=== PATIENT | male | born 1990 | race Caucasian/White ===

== ENCOUNTER 2017-05-13 05:29 | Day surgery (SDC) | payer MEDICAID ==
[~2017-05-13 05:29] MED LIST: Dextrose 5%-0.45% NaCl 1,000 ML IV SCH; Sodium Chloride 0.9% 10 ML Syringe FLUSH PRN
[2017-05-13] MEDS ORDERED: Midazolam 1 MG/ML 2 ML SDV ONE (06:12)
[2017-05-13] MEDS ORDERED: fentaNYL 100 MCG/2 ML SDV ONE (06:12)
[2017-05-13] MEDS ORDERED: fentaNYL 100 MCG/2 ML SDV IV ONE ×3 (06:32→16:15)
[2017-05-13] MEDS ORDERED: Midazolam 1 MG/ML 2 ML SDV IV ONE ×3 (06:34→16:15)
[2017-05-13 08:12] VITALS: BP 119/83
--- NOTE | 2017-05-13 08:28 | OR ---
DATE: 05/13/2017 PROCEDURE: Esophagogastroduodenoscopy and multiple pinch biopsies. INSTRUMENT USED: GIF-H180 Olympus video panendoscope. PREMEDICATIONS: No oral topical anesthesia used. Fentanyl 100 mcg intravenous, Versed 2 mg intravenous. The procedure was done under pulse oximetry, BP recording, and nuclear control operator. INDICATION: The patient with long-standing heartburn, regurgitation, and intermittent hematemesis, unexplained, and not responsive to medical measures, on longstanding acid suppressants. Esophagogastroduodenoscopy is performed for detection of any active erosive lesions, Patel's esophagus and/or malignancy also under consideration, H. pylori status to be determined, endoscopic hemostasis therapy if needed. DESCRIPTION OF PROCEDURE: The scope was passed with ease. Adequate visualization of the esophagus was made from proximal to distal areas. No upper esophageal lesions identified. No distal esophageal stricture. No uphill or downhill esophageal varices. No Elissa-Leon tear. Grade A erosive changes were noted by [place] criteria. No esophageal polyp or tumor mass identified. Z-line was seen at around 40 cm distal to the oral verge, configuration consistent with grade 1 by ZAP classification. No proximal gastric varices noted. Gastric fundus examination by retroflexion showed no polypoid lesions. No gastric ulcer, malignant mass, or vascular ectasia identified. The examination was a bit limited due to the presence of some solid food material that could not be aspirated clear. Duodenal bulb showed no ulcer. Visualized second part of the duodenum was unremarkable. Multiple pinch biopsies were taken from the gastric, antrum, and proximal body and sent for PyloriTek test for H. pylori, and if negative in an hour, the tissue is to be sent for histopathology. No bleeding was noted from any of the visualized areas at the completion of examination. Photographs were taken of the duodenal bulb, gastric antrum, fundus, and distal esophagus. IMPRESSION: Grade A gastroesophageal reflux disease. The patient tolerated the procedure well. [facility] /[id number]
== END 2017-05-13 08:40 | disposition home or self-care (01) ==
LOC: DL.ENDO 05:29
PROVIDERS: ATTEND Internal Medicine Gastroenterology
DX: A04.8 Other specified bacterial intestinal infections (principal); K21.9 Gastro-esophageal reflux disease without esophagitis; E66.09 Other obesity due to excess calories; Z91.030 Bee allergy status; M51.36 Other intervertebral disc degeneration, lumbar region
CPT/HCPCS: 43239; J2250; J3010; J7042

== ENCOUNTER 2017-12-21 21:49 | Emergency (ER) | payer MEDICAID ==
[2017-12-21 22:03] VITALS: BP 132/89
[2017-12-21] MEDS ORDERED: Ondansetron 4 MG/2 ML SDV IV ONE (22:06)
[2017-12-21] MEDS ORDERED: Sodium Chloride 0.9% 1,000 ML IV SCH (22:30)
[2017-12-21 22:41] LABS: CHLORIDE,CL 102 mmol/L (101-111); SODIUM,NA 137 mmol/L (135-145)
[2017-12-21] MEDS ORDERED: Metoclopramide 10 MG/2 ML SDV IVPUSH ONE (23:06)
--- NOTE | 2017-12-21 23:10 | EDM.PDOC ---
ED HPI GENERAL MEDICAL PROBLEM - General Chief Complaint: General Stated Complaint: sick [id number] Time Seen by Provider: 12/21/17 23:06 Source of Information: Reports: Patient History Limitations: Reports: No Limitations - History of Present Illness INITIAL COMMENTS - FREE TEXT/NARRATIVE: c/o N/V/D since yesterday and not getting better. Abdomen Pain Score (Numeric/FACES): 8 - Related Data Allergies Allergy/AdvReac Type Severity Reaction Status Date / Time venom-honey bee Allergy Hives Verified 12/21/17 22:31 [bee venom (honey bee)] Home Meds: Home Meds Ibuprofen 1 - 2 tab PO Q6H PRN 05/10/17 [History] Ranitidine HCl [Ranitidine] 2 tab PO BID PRN 05/10/17 [History] Omeprazole [Omeprazole] 20 mg PO DAILY 12/21/17 [History] Past Medical History - Past Health History Medical/Surgical History: Denies Medical/Surgical History HEENT History: Reports: None Cardiovascular History: Reports: None Respiratory History: Reports: None Gastrointestinal History: Reports: GERD Genitourinary History: Reports: None Musculoskeletal History: Reports: Back Pain, Chronic, Fracture, Other (See Below ) Other Musculoskeletal History: knee. 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 Psychiatric History: Reports: Other (See Below) Other Psychiatric History: NICOTINE ADDICTION Endocrine/Metabolic History: Reports: None Hematologic History: Reports: None Immunologic History: Reports: None Oncologic (Cancer) History: Reports: None Dermatologic History: Reports: None - Infectious Disease History Infectious Disease History: Reports: Chicken Pox - Past Surgical History Head Surgeries/Procedures: Reports: None HEENT Surgical History: Reports: None Cardiovascular Surgical History: Reports: None Respiratory Surgical History: Reports: None GI Surgical History: Reports: None Musculoskeletal Surgical History: Reports: Arthroscopic Knee, Other (See Below) Other Musculoskeletal Surgeries/Procedures:: ACL and MCL tear Social & Family History - Family History Family Medical History: Noncontributory Endocrine/Metabolic: Reports: Other (See Below) Other Endocrine/Metabolic Family History: MULTIPLE FAMILY MEMBERS W DIABETES MELLITUS - Tobacco Use Smoking Status *Q: Current Every Day Smoker Years of Tobacco use: 7 Packs/Tins Daily: 10 Used Tobacco, but Quit: No Second Hand Smoke Exposure: Yes - Caffeine Use Caffeine Use: Reports: Coffee, Soda - Alcohol Use Days Per Week of Alcohol Use: 0 - Recreational Drug Use Recreational Drug Use: No - Living Situation & Occupation Living situation: Reports: Single, with Family Occupation: Unemployed ED ROS GENERAL - Review of Systems Review Of Systems: ROS reveals no pertinent complaints other than HPI. ED EXAM, GENERAL - Physical Exam Exam: See Below Exam Limited By: No Limitations General Appearance: Alert, WD/WN, Mild Distress, Other (nausea) Ears: Hearing Grossly Normal Throat/Mouth: Normal Voice, No Airway Compromise Head: Atraumatic Neck: Non-Tender, Full Range of Motion Respiratory/Chest: No Respiratory Distress Cardiovascular: Regular Rate, Rhythm GI/Abdominal: Tender, Other (generalized, BS hyper). No: Guarding, Rigid, Rebound Neurological: Alert, Oriented, Normal Cognition, Normal Gait, No Motor/Sensory Deficits Psychiatric: Flat Affect Skin Exam: Warm, Dry, Normal Color Lymphatic: No Adenopathy Course - Vital Signs Last Recorded V/S: Last Vital Signs Temp 36.7 C 12/21/17 21:55 Pulse 111 H 12/21/17 21:55 Resp 20 12/21/17 21:55 BP 132/89 12/21/17 21:55 Pulse Ox 98 12/21/17 21:55 - Orders/Labs/Meds Labs: Laboratory Tests 12/21/17 12/21/17 12/21/17 Range/Units 22:15 22:15 22:15 WBC 10.2 H (5.0-10.0) 10^3/uL RBC 6.10 (4.6-6.2) 10^6/uL Hgb 16.1 (14.0-18.0) g/dL Hct 46.5 (40.0-54.0) % MCV 76.2 L (80-100) fL MCH 26.4 L (27.0-34.0) pg MCHC 34.6 (33.0-35.0) g/dL Plt Count 264 (150-450) 10^3/uL Neut % (Auto) 76.7 H (42.2-75.2) % Lymph % (Auto) 11.0 L (20.5-50.1) % Gordon % (Auto) 9.9 H (2-8) % Eos % (Auto) 2.2 (1.0-3.0) % Baso % (Auto) 0.2 (0.0-1.0) % Sodium 137 (135-145) mmol/L Potassium 3.4 L (3.6-5.0) mmol/L Chloride 102 (101-111) mmol/L Carbon Dioxide 24.0 (21.0-31.0) mmol/L Anion Gap 14.4 BUN 20 H (7-18) mg/dL Creatinine 1.0 (0.6-1.3) mg/dL Est Cr Clr Drug Dosing 109.25 mL/min Estimated GFR (MDRD) > 60 BUN/Creatinine Ratio 20.00 Glucose 103 (74-105) mg/dL Lactic Acid 1.4 (0.5-2.2) mmol/L Calcium 9.3 (8.4-10.2) mg/dl Total Bilirubin 0.7 (0.2-1.0) mg/dL AST 46 H (10-42) IU/L ALT 43 (10-60) IU/L Alkaline Phosphatase 51 (42-121) IU/L Total Protein 7.6 (6.7-8.2) g/dl Albumin 4.2 (3.2-5.5) g/dl Globulin 3.4 Albumin/Globulin Ratio 1.24 Meds: Medications Discontinued Medications Generic Name Dose Route Start Last Admin Trade Name Freq PRN Reason Stop Dose Admin Sodium Chloride 1,000 mls @ 999 mls/hr 12/21/17 22:30 12/21/17 22:27 Normal Saline IV 999 mls/hr ASDIRECTED SHAD Administration Metoclopramide HCl 10 mg 12/21/17 23:06 12/21/17 23:20 Reglan IVPUSH 12/21/17 23:07 10 mg ONETIME ONE Administration Ondansetron HCl 4 mg 12/21/17 22:06 12/21/17 22:22 Zofran IV 12/21/17 22:07 4 mg ONETIME ONE Administration - Re-Assessments/Exams Free Text/Narrative Re-Assessment/Exam: 12/21/17 23:08 results discussed with pt. Departure - Departure Time of Disposition: 23:25 Disposition: Home, Self-Care 01 Condition: Good Clinical Impression: Gastroenteritis Vomiting Qualifiers: Vomiting type: unspecified Vomiting Intractability: non-intractable Nausea presence: with nausea Qualified Code(s): R11.2 - Nausea with vomiting, unspecified Diarrhea Qualifiers: Diarrhea type: unspecified type Qualified Code(s): R19.7 - Diarrhea, unspecified - Discharge Information Instructions: Nausea and Vomiting, Adult, [id number] Forms: ED Department Discharge Additional Instructions: 1) avoid solid foods next 48 hours 2) drink lots of liquids 3) follow up at clinic or recheck as needed rx given; reglan 10mg bid prn x 12
== END 2017-12-21 23:28 | disposition home or self-care (01) ==
LOC: DL.ED 21:49
DX: K52.9 Noninfective gastroenteritis and colitis, unspecified (principal); K21.9 Gastro-esophageal reflux disease without esophagitis; F17.210 Nicotine dependence, cigarettes, uncomplicated; Z91.030 Bee allergy status; Z79.899 Other long term (current) drug therapy
CPT/HCPCS: 36415; 80053; 83605; 85025; 96361; 96374; 96375; 99284; J2405; J2765; J7030

== ENCOUNTER 2018-03-16 22:16 | Emergency (ER) | payer MEDICAID ==
[2018-03-16] MEDS ORDERED: Lidocaine 1% 30 ML SDV INJECT ONE (22:26)
--- NOTE | 2018-03-16 22:32 | EDM.PDOC ---
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 Right 2-Index finger Pain Score (Numeric/FACES): 4 - Related Data Allergies Allergy/AdvReac Type Severity Reaction Status Date / Time venom-honey bee Allergy Hives Verified 12/21/17 22:31 [bee venom (honey bee)] Home Meds: Home Meds Ibuprofen 1 - 2 tab PO Q6H PRN 05/10/17 [History] Ranitidine HCl [Ranitidine] 2 tab PO BID PRN 05/10/17 [History] Omeprazole 20 mg PO DAILY 12/21/17 [History] Past Medical History - Past Health History Medical/Surgical History: Denies Medical/Surgical History HEENT History: Reports: None Cardiovascular History: Reports: None Respiratory History: Reports: None Gastrointestinal History: Reports: GERD Genitourinary History: Reports: None Musculoskeletal History: Reports: Back Pain, Chronic, Fracture, Other (See Below ) Other Musculoskeletal History: knee. 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 Psychiatric History: Reports: Other (See Below) Other Psychiatric History: NICOTINE ADDICTION Endocrine/Metabolic History: Reports: None Hematologic History: Reports: None Immunologic History: Reports: None Oncologic (Cancer) History: Reports: None Dermatologic History: Reports: None - Infectious Disease History Infectious Disease History: Reports: Chicken Pox - Past Surgical History Head Surgeries/Procedures: Reports: None HEENT Surgical History: Reports: None Cardiovascular Surgical History: Reports: None Respiratory Surgical History: Reports: None GI Surgical History: Reports: None Musculoskeletal Surgical History: Reports: Arthroscopic Knee, Other (See Below) Other Musculoskeletal Surgeries/Procedures:: ACL and MCL tear Social & Family History - Family History Family Medical History: Noncontributory Endocrine/Metabolic: Reports: Other (See Below) Other Endocrine/Metabolic Family History: MULTIPLE FAMILY MEMBERS W DIABETES MELLITUS - Caffeine Use Caffeine Use: Reports: Coffee, Soda - Living Situation & Occupation Living situation: Reports: Single, with Family Occupation: Unemployed ED ROS GENERAL - Review of Systems Review Of Systems: ROS reveals no pertinent complaints other than HPI. ED EXAM, SKIN/RASH Exam: See Below Exam Limited By: No Limitations General Appearance: Alert, WD/WN, No Apparent Distress Ears: Hearing Grossly Normal Throat/Mouth: Normal Voice, No Airway Compromise Head: Atraumatic Neck: Non-Tender, Full Range of Motion Respiratory/Chest: No Respiratory Distress Cardiovascular: Regular Rate, Rhythm GI/Abdominal: Soft, Non-Tender Extremities: Other (right index lac, NV wnl, good ROM) Neurological: Alert, Oriented, Normal Cognition, Normal Gait, No Motor/Sensory Deficits Psychiatric: Normal Affect, Normal Mood Skin: Warm, Dry, Normal Color Location, Skin: Upper Extremity, Right ED SKIN PROCEDURES - Laceration/Wound Repair Right Finger Lac/Wound length In cm: 0.5 (right index) Appearance: Subcutaneous, Linear, Clean Distal NVT: Neuro & Vascular Intact, No Tendon Injury Anesthetic Type: Local Local Anesthesia - Lidocaine (Xylocaine): 1% Plain Local Anesthetic Volume: 5cc Skin Prep: Chlorhexidine (Hibiciens) Exploration/Debridement/Repair: Wound Explored, No Foreign Material Found Closed with: Sutures Suture Size: 4-0 Suture Type: Nylon, Interrupted Sterile Dressing Applied: Provider Tetanus Status Addressed: Yes Complications: No Course - Vital Signs Last Recorded V/S: Last Vital Signs Temp 36.4 C 03/16/18 22:27 Pulse 97 03/16/18 22:27 Resp 19 03/16/18 22:27 BP 146/79 H 03/16/18 22:27 Pulse Ox 100 03/16/18 22:27 - Orders/Labs/Meds Meds: Medications Discontinued Medications Generic Name Dose Route Start Last Admin Trade Name Malaika PRN Reason Stop Dose Admin Lidocaine HCl 30 ml 03/16/18 22:26 Xylocaine-Mpf 1% INJECT 03/16/18 22:27 ONETIME ONE Departure - Departure Time of Disposition: 22:54 Disposition: Home, Self-Care 01 Condition: Good Clinical Impression: Finger laceration Qualifiers: Encounter type: initial encounter Finger: index finger Damage to nail status: without damage Foreign body presence: without foreign body Laterality: right Qualified Code(s): S61.210A - Laceration without foreign body of right index finger without damage to nail, initial encounter - Discharge Information Instructions: Sutured Wound Care, [id number] Forms: ED Department Discharge Additional Instructions: 1) keep wound clean dry covered 2) wound check if looks infected 3) suture removal 10 days
[2018-03-16 22:39] VITALS: BP 146/79
== END 2018-03-16 23:04 | disposition home or self-care (01) ==
LOC: DL.ED 22:16
DX: S61.210A Laceration without foreign body of right index finger without damage to nail, initial encounter (principal); X58.XXXA Exposure to other specified factors, initial encounter; K21.9 Gastro-esophageal reflux disease without esophagitis; F17.200 Nicotine dependence, unspecified, uncomplicated; Z91.030 Bee allergy status; Z79.899 Other long term (current) drug therapy
CPT/HCPCS: 12001; 99282

== ENCOUNTER 2020-11-17 20:08 | Emergency (ER) | payer BC ==
[2020-11-17 20:46] VITALS: BP 141/92; PULSE 90
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
== END 2020-11-17 21:36 | disposition home or self-care (01) ==
LOC: DL.ED 20:08
DX: S60.222A Contusion of left hand, initial encounter (principal); S60.221A Contusion of right hand, initial encounter; K21.9 Gastro-esophageal reflux disease without esophagitis; M41.9 Scoliosis, unspecified; Z91.030 Bee allergy status; Z72.0 Tobacco use; Z79.899 Other long term (current) drug therapy; W20.8XXA Other cause of strike by thrown, projected or falling object, initial encounter
CPT/HCPCS: 73130-50; 99282; 99283-25

== ENCOUNTER 2021-05-16 14:22 | Emergency (ER) | payer SELFPAY ==
[2021-05-16] MEDS ORDERED: Sodium Chloride 0.9% 1,000 ML IV ONE (15:07)
[2021-05-16] MEDS ORDERED: Ondansetron 4 MG/2 ML SDV IVPUSH ONE (15:07)
--- NOTE | 2021-05-16 15:09 | EDM.PDOC ---
ED HPI GENERAL MEDICAL PROBLEM - General Chief Complaint: Exposure to Heat or Cold Stated Complaint: POSSIBLE HEAT STROKE Time Seen by Provider: 05/16/21 15:15 Source of Information: Reports: Patient, RN, RN Notes Reviewed History Limitations: Reports: No Limitations - History of Present Illness INITIAL COMMENTS - FREE TEXT/NARRATIVE: Sin is a 30 y/o female who presents to the ED via personal vehicle with complaints of headache, nausea, vomiting, and cramping abdominal pain. The patient reports he was performing strenuous activity at work in the heat yesterday and is concerned he developed heat stroke. The patient states he had a headache yesterday when he went to bed and woke this morning with nausea. He has vomited approximately 10x. He denies fever, shaking chills, vision changes, dizziness, cough, sore throat, hematemesis, abdominal pain, constipation, diarrhea, dysuria, or hematuria. He has no diet or medication changes. His last meal was the [employer] buffet last night. The patient attest to smoking 1/4 pack of cigarettes per day; he denies alcohol or recreational drug use. abdomen Pain Score (Numeric/FACES): 8 - Related Data Allergies Allergy/AdvReac Type Severity Reaction Status Date / Time venom-honey bee Allergy Hives Verified 05/16/21 14:49 [bee venom (honey bee)] Home Meds: Home Meds Ibuprofen 1 - 2 tab PO Q6H PRN 05/10/17 [History] Ranitidine HCl [Ranitidine] 2 tab PO BID PRN 05/10/17 [History] Omeprazole 20 mg PO DAILY 12/21/17 [History] Past Medical History - Past Health History Medical/Surgical History: Denies Medical/Surgical History HEENT History: Reports: None Cardiovascular History: Reports: None Respiratory History: Reports: None Gastrointestinal History: Reports: GERD Genitourinary History: Reports: None Musculoskeletal History: Reports: Back Pain, Chronic, Fracture, Other (See Below) Other Musculoskeletal History: knee. 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 Psychiatric History: Reports: Other (See Below) Other Psychiatric History: NICOTINE ADDICTION Endocrine/Metabolic History: Reports: None Hematologic History: Reports: None Immunologic History: Reports: None Oncologic (Cancer) History: Reports: None Dermatologic History: Reports: None - Infectious Disease History Infectious Disease History: Reports: Chicken Pox - Past Surgical History Head Surgeries/Procedures: Reports: None HEENT Surgical History: Reports: None Cardiovascular Surgical History: Reports: None Respiratory Surgical History: Reports: None GI Surgical History: Reports: None Musculoskeletal Surgical History: Reports: Arthroscopic Knee, Other (See Below) Other Musculoskeletal Surgeries/Procedures:: ACL and MCL tear Social & Family History - Family History Family Medical History: No Pertinent Family History Endocrine/Metabolic: Reports: Other (See Below) Other Endocrine/Metabolic Family History: MULTIPLE FAMILY MEMBERS W DIABETES MELLITUS - Caffeine Use Caffeine Use: Reports: Coffee, Soda - Living Situation & Occupation Living situation: Reports: Single, with Family Occupation: Unemployed ED ROS GENERAL - Review of Systems Review Of Systems: Comprehensive ROS is negative, except as noted in HPI. ED EXAM, GENERAL - Physical Exam Exam: See Below Exam Limited By: No Limitations General Appearance: Alert, No Apparent Distress Eye Exam: Bilateral Eye: EOMI, Normal Inspection, PERRL (3mm) Ears: Normal External Exam, Normal Canal, Hearing Grossly Normal, Normal TMs Ear Exam: Bilateral Ear: Auricle Normal, Canal Normal, TM normal Nose: Normal Inspection, Normal Mucosa, No Blood Throat/Mouth: Normal Inspection, Normal Oropharynx, Normal Voice, No Airway Compromise Head: Atraumatic, Normocephalic Neck: Normal Inspection, Supple, Non-Tender, Full Range of Motion. No: Lymphadenopathy (L), Lymphadenopathy (R) Respiratory/Chest: No Respiratory Distress, Lungs Clear, Normal Breath Sounds, No Accessory Muscle Use, Chest Non-Tender Cardiovascular: Normal Peripheral Pulses, Regular Rate, Rhythm, No Edema, No Gallop, No JVD, No Murmur, No Rub Peripheral Pulses: 2+: Radial (L), Radial (R) GI/Abdominal: Normal Bowel Sounds, Soft, No Distention, No Abnormal Bruit, No Mass, Pelvis Stable, Tender (To LLQ). No: Guarding, Rigid, Rebound (Male) Exam: Deferred Rectal (Males) Exam: Deferred Back Exam: Normal Inspection, Full Range of Motion. No: CVA Tenderness (L), CVA Tenderness (R) Extremities: Normal Inspection, Normal Range of Motion, Non-Tender, Normal Capillary Refill, No Pedal Edema Neurological: Alert, Oriented, CN II-XII Intact, Normal Cognition, Normal Gait, Normal Reflexes, No Motor/Sensory Deficits Psychiatric: Normal Affect, Normal Mood Skin Exam: Warm, Dry, Intact, Normal Color, No Rash. No: Cyanosis, Ecchymosis, Erythema, Jaundice, Mottled, Pallor, Petechiae Lymphatic: No Adenopathy Course - Vital Signs Last Recorded V/S: Last Vital Signs Temp 98.3 F 05/16/21 14:43 Pulse 89 05/16/21 14:43 Resp 20 05/16/21 14:43 BP 127/86 05/16/21 14:43 Pulse Ox 99 05/16/21 14:43 - Orders/Labs/Meds Labs: Laboratory Tests 05/16/21 05/16/21 05/16/21 Range/Units 15:00 15:00 16:13 WBC 15.0 H (5.0-10.0) 10^3/uL RBC 6.02 (4.6-6.2) 10^6/uL Hgb 16.4 (14.0-18.0) g/dL Hct 48.5 (40.0-54.0) % MCV 80.6 (80-100) fL MCH 27.2 (27.0-34.0) pg MCHC 33.8 (33.0-35.0) g/dL Plt Count 290 (150-450) 10^3/uL Neut % (Auto) 83.9 H (42.2-75.2) % Lymph % (Auto) 6.8 L (20.5-50.1) % Andrews % (Auto) 6.7 (2-8) % Eos % (Auto) 2.4 (1.0-3.0) % Baso % (Auto) 0.2 (0.0-1.0) % Sodium 143 (136-145) mmol/L Potassium 4.2 (3.5-5.1) mmol/L Chloride 104 (98-107) mmol/L Carbon Dioxide 28 (21-32) mmol/L Anion Gap 15.2 H (7-13) mEq/L BUN 18 (7-18) mg/dL Creatinine 0.96 (0.70-1.30) mg/dL Est Cr Clr Drug Dosing TNP Estimated GFR (MDRD) > 60 BUN/Creatinine Ratio 18.8 (No establ ref range) Glucose 93 (70-99) mg/dL Calcium 9.2 (8.5-10.1) mg/dL Magnesium 2.0 (1.8-2.4) mg/dL Total Bilirubin 0.6 (0.2-1.0) mg/dL AST 28 (15-37) U/L ALT 46 (16-63) U/L Alkaline Phosphatase 56 (46-116) U/L Total Protein 7.7 (6.4-8.2) g/dL Albumin 4.1 (3.4-5.0) g/dL Globulin 3.6 Albumin/Globulin Ratio 1.1 Urine Color Yellow (YELLOW) Urine Appearance Clear (CLEAR) Urine pH 6.0 (5.0-9.0) Ur Specific [place] >= 1.030 (1.005-1.030) Urine Protein Negative (NEGATIVE) Urine Glucose (UA) Negative (NEGATIVE) Urine Ketones 15 H (NEGATIVE) Urine Occult Blood Negative (NEGATIVE) Urine Nitrite Negative (NEGATIVE) Urine Bilirubin Negative (NEGATIVE) Urine Urobilinogen 0.2 (0.2-1.0) mg/dL Ur Leukocyte Esterase Negative (NEGATIVE) Meds: Medications Discontinued Medications Generic Name Dose Route Start Last Admin Trade Name Freq PRN Reason Stop Dose Admin Sodium Chloride 1,000 mls @ 999 mls/hr 05/16/21 15:07 05/16/21 16:19 Normal Saline IV 05/16/21 16:07 Infused .BOLUS ONE Infusion Iopamidol 100 ml 05/16/21 16:39 05/16/21 17:25 Iopamidol 612 Mg/Ml 100 Ml Bottle IVPUSH 05/16/21 16:40 100 ml ONETIME ONE Administration Ondansetron HCl 4 mg 05/16/21 15:07 05/16/21 15:18 Ondansetron 4 Mg/2 Ml Sdv IVPUSH 05/16/21 15:08 4 mg ONETIME ONE Administration - Radiology Interpretation Free Text/Narrative:: [facility] Final Radiology Report Call: [phone] assistance Online chat: [email or web address] Name: SIN ROBBINS Age: 30Years M Date: 05/16/2021 SSN: -- : [id number] Study: CT ABDOMEN PELVIS W CONT Requesting Physician: Lili Tripathi Images: [phone] Addl Studies: Provided Clinical History: Nausea/Vomiting; WBC 15.7; LLQ pain Contrast: With Contrast Medium: Isovue 300 Contrast Amount: 100 mL Contrast Method: Intravenous (IV) Page 1 of 2 PROCEDURE INFORMATION: Exam: CT Abdomen And Pelvis With Contrast Exam date and time: 05/16/2021 4:33 PM Age: 30 years old Clinical indication: Nausea and vomiting; Additional info: Nausea/vomiting; Wbc 15.7; Llq pain TECHNIQUE: Imaging protocol: Computed tomography of the abdomen and pelvis with contrast. Radiation optimization: All CT scans at this facility use at least one of these dose optimization techniques: automated exposure control; mA and/or kV adjustment per patient size (includes targeted exams where dose is matched to clinical indication); or iterative reconstruction. Contrast material: ISOVUE 300; Contrast volume: 100 ml; Contrast route: INTRAVENOUS (IV); COMPARISON: No relevant prior studies available. FINDINGS: Liver: Normal. No mass. Gallbladder and bile ducts: Normal. No calcified stones. No ductal dilation. Pancreas: Normal. No ductal dilation. Spleen: Normal. No splenomegaly. Adrenal glands: Normal. No mass. Kidneys and ureters: Normal. No hydronephrosis. Stomach and bowel: Mild thickening of the wall of the distal esophagus. No obstruction. No mucosal thickening. Appendix: No evidence of appendicitis. Intraperitoneal space: Unremarkable. No free air. No significant fluid collection. Vasculature: Unremarkable. No abdominal aortic aneurysm. Lymph nodes: Unremarkable. No enlarged lymph nodes. Urinary bladder: Unremarkable as visualized. Reproductive: Unremarkable as visualized. Bones/joints: Degenerative disc disease at the lumbosacral junction. Soft tissues: Small fat containing left inguinal hernia. IMPRESSION: 1. Mild thickening of the wall of the distal esophagus could be due to esophagitis. 2. Other incidental findings as described Thank you for allowing us to participate in the care of your patient. Dictated and Authenticated by: Jamila Chahal MD 05/16/2021 4:48 PM Central Time ([place] & [place]) - Re-Assessments/Exams Free Text/Narrative Re-Assessment/Exam: 05/16/[address] abdomen/pelvis given elevated WBC and LLQ pain. NS 1L bolus and Zofran 4mg IVP administered. CT abdomen/pelvis revealed esophagitis and small left inguinal hernia. Findings of examination, lab work, and imaging reviewed with patient. Discussed supportive cares for gastroenteritis and esophagitis. Red flag signs and symptoms which would warrant reevaluation reviewed. Patient verbalized understanding and agreement with the plan of care. Departure - Departure Time of Disposition: 17:08 Disposition: Home, Self-Care 01 Condition: Good Clinical Impression: Esophagitis, Gastroenteritis, Left inguinal hernia - Discharge Information *PRESCRIPTION DRUG MONITORING PROGRAM REVIEWED*: Not Applicable *COPY OF PRESCRIPTION DRUG MONITORING REPORT IN PATIENT [id number]: Not Applicable Instructions: Esophagitis, Inguinal Hernia, Adult Referrals: PCP,None [Primary Care Provider] - Forms: ED Department Discharge Additional Instructions: 1.) Follow up with your primary care provider regarding today's visit. 2.) Drink small, frequent sips of water to avoid nausea but to stay hydrated. 3.) Eat small, snack like meals. Eat a bland diet avoiding spicy, greasy, high- fat foods. 4.) Return to the emergency department with fever, shaking chills, persistent vomiting, or persistent diarrhea. Sepsis Event Note (ED) - Evaluation Sepsis Screening Result: No Definite Risk
[2021-05-16 15:25] LABS: ANION GAP 15.2 mEq/L (7-13); CHLORIDE,CL 104 mmol/L (98-107); SODIUM,NA 143 mmol/L (136-145)
[2021-05-16] MEDS ORDERED: Iopamidol 612 MG/ML 100 ML Bottle IVPUSH ONE (16:39)
--- NOTE | 2021-05-16 16:48 | CT ---
PROCEDURE INFORMATION: Exam: CT Abdomen And Pelvis With Contrast Exam date and time: 05/16/2021 4:33 PM Age: 30 years old Clinical indication: Nausea and vomiting; Additional info: Nausea/vomiting; Wbc 15.7; Llq pain TECHNIQUE: Imaging protocol: Computed tomography of the abdomen and pelvis with contrast. Radiation optimization: All CT scans at this facility use at least one of these dose optimization techniques: automated exposure control; mA and/or kV adjustment per patient size (includes targeted exams where dose is matched to clinical indication); or iterative reconstruction. Contrast material: ISOVUE 300; Contrast volume: 100 ml; Contrast route: INTRAVENOUS (IV); COMPARISON: No relevant prior studies available. FINDINGS: Liver: Normal. No mass. Gallbladder and bile ducts: Normal. No calcified stones. No ductal dilation. Pancreas: Normal. No ductal dilation. Spleen: Normal. No splenomegaly. Adrenal glands: Normal. No mass. Kidneys and ureters: Normal. No hydronephrosis. Stomach and bowel: Mild thickening of the wall of the distal esophagus. No obstruction. No mucosal thickening. Appendix: No evidence of appendicitis. Intraperitoneal space: Unremarkable. No free air. No significant fluid collection. Vasculature: Unremarkable. No abdominal aortic aneurysm. Lymph nodes: Unremarkable. No enlarged lymph nodes. Urinary bladder: Unremarkable as visualized. Reproductive: Unremarkable as visualized. Bones/joints: Degenerative disc disease at the lumbosacral junction. Soft tissues: Small fat containing left inguinal hernia. IMPRESSION: 1. Mild thickening of the wall of the distal esophagus could be due to esophagitis. 2. Other incidental findings as described
[2021-05-16 17:21] VITALS: BP 127/86; PULSE 89
== END 2021-05-16 17:23 | disposition home or self-care (01) ==
LOC: DL.ED 14:22
DX: K40.90 Unilateral inguinal hernia, without obstruction or gangrene, not specified as recurrent (principal); K52.9 Noninfective gastroenteritis and colitis, unspecified; K21.00 Gastro-esophageal reflux disease with esophagitis, without bleeding; Z91.030 Bee allergy status; Z79.899 Other long term (current) drug therapy
CPT/HCPCS: 36415; 74177; 80053; 81003; 83735; 85025; 96374; 99284; J2405; J7030; Q9967

== ENCOUNTER 2022-01-31 18:25 | Emergency (ER) | payer SELFPAY ==
[2022-01-31] MEDS ORDERED: Acetaminophen/HYDROcodone 325-10 MG Tab PO ONE (18:26)
[2022-01-31] MEDS ORDERED: HYDROmorphone 1 MG/ML Syringe IM ONE (18:42)
[2022-01-31] MEDS ORDERED: Ondansetron 4 MG Tab.DIS PO ONE (18:43)
[2022-01-31] MEDS ORDERED: Ketorolac 30 MG/ML SDV IM ONE (18:43)
[2022-01-31 18:55] VITALS: BP 119/80; PULSE 72
[2022-01-31] MEDS ORDERED: fentaNYL 100 MCG/2 ML SDV IVPUSH ONE (20:31)
[2022-01-31] MEDS ORDERED: fentaNYL 100 MCG/2 ML SDV IM ONE (20:34)
[2022-01-31] MEDS ORDERED: Acetaminophen/HYDROcodone 325-10 MG Tab ONE (21:42)
== END 2022-01-31 22:02 | disposition home or self-care (01) ==
LOC: DL.ED 18:25
DX: S83.92XA Sprain of unspecified site of left knee, initial encounter (principal); S86.912A Strain of unspecified muscle(s) and tendon(s) at lower leg level, left leg, initial encounter; K21.9 Gastro-esophageal reflux disease without esophagitis; Z79.899 Other long term (current) drug therapy; Z91.030 Bee allergy status; Z86.16 Personal history of COVID-19; Z72.0 Tobacco use; X50.1XXA Overexertion from prolonged static or awkward postures, initial encounter
CPT/HCPCS: 73560-LT; 96372; 99283; 99283-25; A9270-GY; J1170; J1885; J3010

== ENCOUNTER 2022-07-22 10:35 | Emergency (ER) | payer OTHER ==
[2022-07-22] MEDS ORDERED: diphenhydrAMINE 50 MG/ML SDV IVPUSH ONE (11:09)
[2022-07-22] MEDS ORDERED: Ondansetron 4 MG/2 ML SDV IVPUSH ONE (11:09)
[2022-07-22] MEDS ORDERED: Ketorolac 30 MG/ML SDV IVPUSH ONE (11:09)
[2022-07-22] MEDS ORDERED: Sodium Chloride 0.9% 1,000 ML IV ONE (11:09)
[2022-07-22 12:11] VITALS: BP 132/92; PULSE 104
== END 2022-07-22 12:05 | disposition home or self-care (01) ==
LOC: DL.ED 10:35
DX: G43.009 Migraine without aura, not intractable, without status migrainosus (principal); K21.9 Gastro-esophageal reflux disease without esophagitis; Z72.0 Tobacco use; Z91.030 Bee allergy status; Z79.899 Other long term (current) drug therapy
CPT/HCPCS: 70450; 96374; 96375; 99282; 99283; J1200; J1885; J2405; J7030

== ENCOUNTER 2023-10-30 10:09 | Emergency (ER) | payer OTHER ==
[2023-10-30] MEDS ORDERED: Ondansetron 4 MG in Sodium Chloride 0.9% 50 ML IV ONE (10:37)
[2023-10-30] MEDS ORDERED: HYDROmorphone 1 MG/ML Syringe IVPUSH ONE ×2 (10:38→11:29)
[2023-10-30] MEDS ORDERED: Sodium Chloride 0.9% 1,000 ML IV ONE (10:39)
[2023-10-30] MEDS ORDERED: Ondansetron 4 MG/2 ML SDV IVPUSH ONE (10:39)
[2023-10-30 10:49] LABS: BASOPHILS PERCENT AUTO 0.4 % (0.0-1.0); EOSINOPHILS PERCENT AUTO 3.4 % (1.0-3.0); HEMATOCRIT 44.1 % (40.0-54.0); HEMOGLOBIN 14.9 g/dL (14.0-18.0); LYMPHOCYTES PERCENT AUTO 11.1 % (20.5-50.1); MEAN CORPUSCULAR HEMOGLOBIN 26.6 pg (27.0-34.0); MEAN CORPUSCULAR HGB CONC 33.8 g/dL (33.0-35.0); MEAN CORPUSCULAR VOLUME 78.8 fL (80-100); MONOCYTES PERCENT AUTO 9.2 % (2-8); NEUTROPHILS PERCENT AUTO 75.9 % (42.2-75.2); PLATELET COUNT,PLT 330 10^3/uL (150-450); WHITE BLOOD CELL COUNT,WBC 16.3 10^3/uL (5.0-10.0)
[2023-10-30 11:18] LABS: A/G RATIO 1.1; ALBUMIN 3.9 g/dL (3.4-5.0); ANION GAP 16.1 mEq/L (7-13); BILIRUBIN TOTAL 0.4 mg/dL (0.2-1.0); BUN/CREATININE RATIO 16.5 (No establ ref range); CALCIUM 9.3 mg/dL (8.5-10.1); CREATININE 1.27 mg/dL (0.70-1.30); EST CRCL DRUG DOSING (CG) 82.28 mL/min; POTASSIUM,K 4.1 mmol/L (3.5-5.1); PROTEIN TOTAL,TP 7.3 g/dL (6.4-8.2)
[2023-10-30 11:43] LABS: APPEARANCE,URINE CLEAR (CLEAR); BILIRUBIN,URINE NEGATIVE (NEGATIVE); COLOR,URINE YELLOW (YELLOW); GLUCOSE,URINE NEGATIVE (NEGATIVE); KETONES,URINE TRACE (NEGATIVE); LEUKOCYTE ESTERASE,URINE NEGATIVE (NEGATIVE); NITRITE,URINE NEGATIVE (NEGATIVE); OCCULT BLOOD,URINE TRACE-INTACT (NEGATIVE); PROTEIN,URINE TRACE (NEGATIVE); UROBILINOGEN,URINE 0.2 mg/dL (0.2-1.0)
[2023-10-30 12:07] LABS: RBC,URINE 0-5 /HPF (0-5)
[2023-10-30 12:09] LABS: AMORPHOUS SEDIMENT,URINE OCCASIONAL /HPF (NOT SEEN); BACTERIA,URINE FEW /HPF (0-FEW/HPF); HYALINE CASTS,URINE RARE; MUCUS,URINE MODERATE /LPF (NOT SEEN)
[2023-10-30 12:10] VITALS: BP 137/105; PULSE 91
[2023-10-30 12:11] LABS: EPITHELIAL CELLS,URINE FEW /HPF (NOT SEEN)
[2023-10-30] MEDS ORDERED: Ketorolac 30 MG/ML SDV IVPUSH ONE (12:39)
== END 2023-10-30 12:58 | disposition home or self-care (01) ==
LOC: DL.ED 10:09
DX: N20.0 Calculus of kidney (principal); Z91.030 Bee allergy status; Z86.16 Personal history of COVID-19
CPT/HCPCS: 36415; 74176; 80053; 81001; 85025; 96361; 96374; 96375; 96376; 99284-25; 99285; J1170; J1885; J2405; J7030

== ENCOUNTER 2024-12-29 17:47 | Emergency (ER) | payer BC ==
[2024-12-29 18:05] VITALS: BP 155/103; PULSE 95
[2024-12-29] MEDS: Ketorolac 30 MG/ML SDV IM ONE (18:09)
== END 2024-12-29 18:22 | disposition home or self-care (01) ==
LOC: DL.ED 17:47
DX: J06.9 Acute upper respiratory infection, unspecified (principal); Z91.030 Bee allergy status; Z86.16 Personal history of COVID-19
CPT/HCPCS: 96372; 99282; 99283; J1885